=== PATIENT | female | born 1950 | race American Indian/Alaskan Native ===

== ENCOUNTER 2020-11-29 08:50 | Emergency (ER) | payer MEDICARE ==
[2020-11-29] MEDS ORDERED: MECLIZINE 25 MG TAB PO ONE (09:22)
--- NOTE | 2020-11-29 09:26 | Emergency Department Report ---
ED General Adult HPI - General Chief complaint: Dizziness Stated complaint: DIZZY/WEAKNESS Time Seen by Provider: 11/29/20 09:13 Source: patient, EMS Mode of arrival: Stretcher Limitations: No Limitations - History of Present Illness Initial comments: Patient is a 70-year-old female with history of hypertension and hypercholesterolemia who presents emergency department for 4 days of room spinning sensation. Patient notes initial onset of symptoms was associated with one episode of nausea vomiting, which patient attributes to drinking juice at the time. Patient also notes hearing disturbance in her right ear throughout this timeframe. Patient denies headache, denies extremity weakness or change in sensation, denies speaking or comprehension difficulties. Patient denies chest pain, denies weakness, denies fever. - Related Data Home Medications Medication Instructions Recorded Confirmed Last Taken Atorvastatin [Lipitor Tab] 40 mg PO DAILY 11/29/20 11/29/20 Unknown amLODIPine [Norvasc] 10 mg PO DAILY 11/29/20 11/29/20 Unknown Previous Rx's Medication Instructions Recorded Last Taken Type Meclizine [Antivert] 12.5 mg PO BID PRN #10 tablet 11/29/20 Unknown Rx Allergies Allergy/AdvReac Type Severity Reaction Status Date / Time No Known Allergies Allergy Unverified 11/29/20 09:07 ED Review of Systems ROS: Stated complaint: DIZZY/WEAKNESS Other details as noted in HPI Comment: All other systems reviewed and negative ED Past Medical Hx - Past Medical History Previous Medical History?: Yes Hx Hypertension: Yes Additional medical history: Hypercholesterolemia - Social History Smoking Status: Unknown if ever smoked - Medications Home Medications: Home Medications Medication Instructions Recorded Confirmed Last Taken Type Atorvastatin [Lipitor Tab] 40 mg PO DAILY 11/29/20 11/29/20 Unknown History Meclizine [Antivert] 12.5 mg PO BID PRN #10 tablet 11/29/20 Unknown Rx amLODIPine [Norvasc] 10 mg PO DAILY 11/29/20 11/29/20 Unknown History ED Physical Exam - General Limitations: No Limitations General appearance: alert, in no apparent distress - Head Head exam: Present: atraumatic, normocephalic - Eye Eye exam: Present: normal appearance - ENT ENT exam: Present: mucous membranes moist - Neck Neck exam: Present: normal inspection - Respiratory Respiratory exam: Present: normal lung sounds bilaterally. Absent: respiratory distress - Cardiovascular Cardiovascular Exam: Present: regular rate, normal rhythm - GI/Abdominal GI/Abdominal exam: Present: soft, normal bowel sounds - Extremities Exam Extremities exam: Present: normal inspection - Back Exam Back exam: Present: normal inspection - Neurological Exam Neurological exam: Present: alert, oriented X3 - Expanded Neurological Exam Expanded Patient oriented to: Present: person, place, time Speech: Present: fluid speech Cranial nerves: EOM's Intact: Normal, Tongue Deviation: Normal, Nystagmus: Abnormal Left (Horizontal nystagmus), Facial Sensation: Normal Cerebellar function: Finger to Nose: Normal, Heel to Velez: Normal Upper motor neuron: Jose Neglect: Normal, Pronator Drift: Normal, Babinski Sign: Normal, Sensory Extinction: Normal Sensory exam: Upper Extremity Light Touch: Normal, Lower Extremity Light Touch: Normal Motor strength exam: RUE: 5, LUE: 5, RLE: 5, LLE: 5 DTR: knee (R): 0, knee (L): 0 Best Eye Response (Navya): (4) open spontaneously Best Motor Response (Navya): (6) obeys commands Best Verbal Response (Navya): (5) oriented Navya Total: 15 - Psychiatric Psychiatric exam: Present: normal affect, normal mood - Skin Skin exam: Present: warm, dry, intact, normal color. Absent: rash ED Course Vital Signs 11/29/20 11/29/20 11/29/20 09:05 09:15 09:19 Pulse Rate 90 73 74 Respiratory 16 13 18 Rate Blood Pressure 152/96 151/89 O2 Sat by Pulse 100 95 Oximetry 11/29/20 11/29/20 11/29/20 10:01 10:15 10:31 Pulse Rate 62 61 59 L Respiratory 12 17 17 Rate Blood Pressure 151/89 144/90 144/90 O2 Sat by Pulse 100 100 94 Oximetry 11/29/20 11/29/20 11/29/20 10:45 11:01 11:15 Pulse Rate 63 66 62 Respiratory 19 21 17 Rate Blood Pressure 144/90 125/76 125/76 O2 Sat by Pulse 90 90 91 Oximetry 11/29/20 11/29/20 11/29/20 11:31 11:45 12:01 Pulse Rate 58 L 59 L 56 L Respiratory 16 16 13 Rate Blood Pressure 125/76 125/76 131/80 O2 Sat by Pulse 94 97 99 Oximetry 11/29/20 12:15 Pulse Rate 69 Respiratory 16 Rate Blood Pressure 131/80 O2 Sat by Pulse 98 Oximetry - Reevaluation(s) Reevaluation #1: 11/29/20 09:26 Patient initially treated with meclizine 25 mg p.o. x1 Reevaluation #2: 11/29/20 11:33 Patient reevaluated and remains in no acute distress. Patient states her dizziness has improved, however, she still feels "a little dizzy." Explained to patient that she likely requires outpatient MRI with PMD and/or neurology, blayne flores is requesting further testing in emergency department. Patient given IV NS 500 mL x 1 and CTA head and neck ordered. Reevaluation #3: 11/29/20 14:38 Patient in no acute distress, neuro exam nonfocal, advise follow-up with PMD or neurology as MRI may be required for definitive diagnosis. ED Medical Decision Making - Lab Data Result diagrams: 11/29/20 10:12 11/29/20 10:12 Labs 11/29/20 11/29/20 11/29/20 10:06 10:12 10:12 WBC 4.8 RBC 4.35 Hgb 13.4 Hct 39.3 MCV 90 MCH 31 MCHC 34 RDW 13.6 Plt Count 204 Lymph % (Auto) 28.6 [place] % (Auto) 6.0 Eos % (Auto) 0.4 Baso % (Auto) 0.2 Lymph # (Auto) 1.4 [place] # (Auto) 0.3 Eos # (Auto) 0.0 Baso # (Auto) 0.0 Seg Neutrophils % 64.8 Seg Neutrophils # 3.1 Sodium 143 Potassium 3.4 L Chloride 105.3 Carbon Dioxide 25 Anion Gap 16 BUN 9 Creatinine 0.5 L Estimated GFR > 60 BUN/Creatinine Ratio 18 Glucose 123 H Calcium 9.1 Magnesium Total Bilirubin 0.30 AST 13 ALT 12 Alkaline Phosphatase 106 Troponin T < 0.010 Total Protein 6.8 Albumin 4.2 Albumin/Globulin Ratio 1.6 Urine Color Yellow Urine Turbidity Cloudy Urine pH 8.0 H Ur Specific [place] 1.010 Urine Protein <15 mg/dl Urine Glucose (UA) Neg Urine Ketones Neg Urine Blood Neg Urine Nitrite Neg Urine Bilirubin Neg Urine Urobilinogen < 2.0 Ur Leukocyte Esterase Neg Urine WBC (Auto) 2.0 Urine RBC (Auto) 1.0 U Epithel Cells (Auto) 1.0 Amorphous Crystals Few Urine Mucus Few 11/29/20 10:12 WBC RBC Hgb Hct MCV MCH MCHC RDW Plt Count Lymph % (Auto) [place] % (Auto) Eos % (Auto) Baso % (Auto) Lymph # (Auto) [place] # (Auto) Eos # (Auto) Baso # (Auto) Seg Neutrophils % Seg Neutrophils # Sodium Potassium Chloride Carbon Dioxide Anion Gap BUN Creatinine Estimated GFR BUN/Creatinine Ratio Glucose Calcium Magnesium 2.00 Total Bilirubin AST ALT Alkaline Phosphatase Troponin T Total Protein Albumin Albumin/Globulin Ratio Urine Color Urine Turbidity Urine pH Ur Specific [place] Urine Protein Urine Glucose (UA) Urine Ketones Urine Blood Urine Nitrite Urine Bilirubin Urine Urobilinogen Ur Leukocyte Esterase Urine WBC (Auto) Urine RBC (Auto) U Epithel Cells (Auto) Amorphous Crystals Urine Mucus Vital Signs 11/29/20 11/29/20 11/29/20 09:05 09:15 09:19 Pulse Rate 90 73 74 Respiratory 16 13 18 Rate Blood Pressure 152/96 151/89 O2 Sat by Pulse 100 95 Oximetry 11/29/20 11/29/20 11/29/20 10:01 10:15 10:31 Pulse Rate 62 61 59 L Respiratory 12 17 17 Rate Blood Pressure 151/89 144/90 144/90 O2 Sat by Pulse 100 100 94 Oximetry 11/29/20 11/29/20 11/29/20 10:45 11:01 11:15 Pulse Rate 63 66 62 Respiratory 19 21 17 Rate Blood Pressure 144/90 125/76 125/76 O2 Sat by Pulse 90 90 91 Oximetry 11/29/20 11/29/20 11/29/20 11:31 11:45 12:01 Pulse Rate 58 L 59 L 56 L Respiratory 16 16 13 Rate Blood Pressure 125/76 125/76 131/80 O2 Sat by Pulse 94 97 99 Oximetry 11/29/20 12:15 Pulse Rate 69 Respiratory 16 Rate Blood Pressure 131/80 O2 Sat by Pulse 98 Oximetry - EKG Data -: EKG Interpreted by Me (Sinus rhythm at 62, no ST-T changes, normal QRS) - Radiology Data Radiology results: report reviewed CT head, CTA head, CTA neck, chest x-ray all negative per radiology Critical care attestation.: If time is entered above; I have spent that time in minutes in the direct care of this critically ill patient, excluding procedure time. ED Disposition Clinical Impression: Vertigo Disposition: DC-01 TO HOME OR SELFCARE Is pt being admited?: No Condition: Stable Instructions: Vertigo Additional Instructions: Follow-up with primary care doctor or neurology in 1 to 2 days for reevaluation. Please note you may require MRI brain for definitive diagnosis. Return to the emergency department for worsening symptoms. Prescriptions: Meclizine [Antivert] 12.5 mg PO BID PRN #10 tablet PRN Reason: Vertigo Referrals: ADILENE JASMINE [Other] - 3-5 Days
--- NOTE | 2020-11-29 09:48 | XRay Report ---
CHEST 1 VIEW INDICATION: weakness COMPARISON: FINDINGS: SUPPORT DEVICES: None. HEART / MEDIASTINUM: No significant abnormality. LUNGS / PLEURA: No significant pulmonary or pleural abnormality. No pneumothorax. ADDITIONAL FINDINGS: IMPRESSION: 1. No acute cardiopulmonary disease Signer Name: Godwin Powell MD Signed: 11/29/2020 9:44 AM Workstation Name: [id number]
[2020-11-29 10:26] LABS: Amorphous Crystals,Urine Few; Bilirubin,Urine NEG (Negative); Blood,Urine NEG (Negative); Color,Urine Yellow (Yellow); Mucus,Urine FEW /HPF; Protein,Urine <15 mg/dL mg/dL (Negative); Urobilinogen,Urine < 2.0 mg/dL (<2.0)
--- NOTE | 2020-11-29 10:26 | Cat Scan Report ---
CT head/brain wo con INDICATION: vertigo. TECHNIQUE: Routine CT head. All CT scans at this location are performed using CT dose reduction for A DINESH by means of automated exposure control. COMPARISON: None. FINDINGS: Intracranial: Matute-white matter differentiation is maintained. No intracranial hemorrhage. No extra a xial collection. No hydrocephalus. No herniation. Periventricular and centrum semiovale white matter hypoattenuation most consistent with sequela of chronic microvascular disease. Sinuses: Mild mucosal thickening is seen in the ethmoid air cells. Paranasal sinuses and mastoid air cells are essentially clear. Orbits: Globes are intact. Calvarium: No acute fracture. IMPRESSION: 1. No acute intracranial abnormality. Signer Name: Roderick Acharya MD Signed: 11/29/2020 10:21 AM Workstation Name: [id number]
[2020-11-29 10:45] LABS: Basophils % (Auto) 0.2 % (0.0-1.8); Eosinophils % (Auto) 0.4 % (0.0-4.3); Hematocrit 39.3 % (30.3-42.9); Hemoglobin 13.4 gm/dl (10.1-14.3); Lymphocytes # (Auto) 1.4 K/mm3 (1.2-5.4); Lymphocytes % (Auto) 28.6 % (13.4-35.0); Mean Corpuscular HGB Conc 34 % (30-34); Mean Corpuscular Volume 90 fl (79-97); Monocytes # (Auto) 0.3 K/mm3 (0.0-0.8); Platelet Count 204 K/mm3 (140-440); Red Blood Count 4.35 M/mm3 (3.65-5.03); Red Cell Distribution Width 13.6 % (13.2-15.2)
[2020-11-29 11:19] LABS: Alanine Aminotransferase 12 units/L (7-56); Albumin 4.2 g/dL (3.9-5); Blood Urea Nitrogen 9 mg/dL (7-17); Calcium 9.1 mg/dL (8.4-10.2); Hemolysis Index 24
[2020-11-29 11:22] LABS: BUN/Creatinine Ratio 18
[2020-11-29] MEDS ORDERED: SODIUM CHLORIDE 0.9% 500 ML 500 ML IV ONE (11:33)
--- NOTE | 2020-11-29 14:32 | Cat Scan Report ---
CT angio neck INDICATION / CLINICAL INFORMATION: 70 years Female; MAIN. TECHNIQUE: Thin cut axial images obtained through the head during IV bolus contrast administration. S agittal, coronal, and 3 plane MIP reconstructions performed by the technologist. NASCET type criteria used evaluate stenoses. All CT scans at this location are performed using CT dose reduction for ALAR A by means of automated exposure control. COMPARISON: None available. FINDINGS: CAROTID ARTERIES: The motion and beam hardening degrade the image quality. However, there is mild ath erosclerotic plaque involving proximal left ICA without significant stenosis by NASCET criteria. The left carotid bifurcation is widely patent. There is also no significant stenosis involving the right carotid arteries by NASCET type criteria. T here is medial course of the distal left common carotid arteries which reflects developmental variant . VERTEBRAL ARTERIES: There is no significant focal stenosis involving vertebral arteries. ARCH: There is mild calcification involving the articular cartilage. There is no significant stenosis of the arch vessels. There is developmental common origin of the brachiocephalic and left common car otid arteries. ADDITIONAL FINDINGS: Remainder of the surrounding soft tissues are grossly normal. IMPRESSION: There is no significant stenosis involving the carotid or cervical arteries by NASCET criteria. Signer Name: Dawit Meng MD Signed: 11/29/2020 2:27 PM Workstation Name: [id number]
--- NOTE | 2020-11-29 14:38 | Cat Scan Report ---
CT angio head INDICATION / CLINICAL INFORMATION: 70 years Female; MAIN. TECHNIQUE: Thin cut axial images obtained through the head during IV bolus contrast administration. S agittal, coronal, and 3 plane MIP reconstructions performed by the technologist. NASCET type criteria used evaluate stenoses. Automated exposure control utilized for radiation reduction purposes. COMPARISON: None available. FINDINGS: INTERNAL CAROTID ARTERIES: There are small foci of calcification involving distal internal carotid ar teries without significant stenosis by NASCET criteria VERTEBROBASILAR SYSTEM: The vertebrobasilar system demonstrates appropriate caliber without significa nt focal narrowing. CEREBRAL ARTERIES: There is no significant stenosis involving the proximal cerebral arteries or evide nce of large vessel occlusion. ANEURYSM: None identified. 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 Th ere is heterogeneous signal within the visualized right transverse and sigmoid sinuses as well as the upper right internal jugular vein which may reflect flow related artifact and admixture of blood. IMPRESSION: There is no CTA evidence of significant stenosis or large vessel occlusion involving intracranial ves sels. Signer Name: Dawit Meng MD Signed: 11/29/2020 2:34 PM Workstation Name: [id number]
[2020-11-29 16:12] VITALS: BP 156/85
--- NOTE | 2020-12-01 09:32 | Electrocardiograph Report ---
[facility] Test Date: 2020-11-29 Test Time: 09:58:48 Pat Name: CATHERINE NOE Department: Room: Gender: F [employer] Trader: [id number] : 1950 Requested By: JORGE LUIS PERALES Order Number: [id number] Reading MD: Gabo Painter Measurements Intervals [place] Rate: 62 P: 41 CO: 152 QRS: 67 QRSD: 89 T: 49 QT: 444 QTc: 453 Interpretive Statements Sinus rhythm No previous ECG available for comparison Electronically Signed On 12-01-2020 9:31:54 EDT by Gabo Painter
== END 2020-11-29 15:30 | disposition home or self-care (01) ==
LOC: ED 08:50
DX: R42 Dizziness and giddiness (principal); I10 Essential (primary) hypertension; E78.00 Pure hypercholesterolemia, unspecified; Z79.899 Other long term (current) drug therapy
CPT/HCPCS: 36415; 70450; 70496; 70498; 71045; 80053; 81001; 83735; 84484; 85025; 93005; 99285; J7040; Q9967